=== PATIENT | male | born 1970 | race Caucasian/White ===

== ENCOUNTER 2020-10-27 12:03 | Emergency (ER) | payer BC ==
[2020-10-27] MEDS ORDERED: Aspirin 81 MG Tab.Chew PO ONE (12:22)
[2020-10-27] MEDS ORDERED: Sodium Chloride 0.9% 10 ML Syringe FLUSH PRN (12:24)
--- NOTE | 2020-10-27 13:10 | CR ---
Chest: Portable view of the chest was obtained. Comparison: No prior chest imaging is available. Heart size and mediastinum are normal. Lungs are clear with no acute parenchymal change. No acute osseous abnormality is appreciated. Impression: 1. Nothing acute is seen on portable chest x-ray. Diagnostic code #1
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
[2020-10-27] MEDS ORDERED: Metoprolol Tartrate 50 MG Tab PO ONE (14:20)
[2020-10-27] MEDS ORDERED: Insulin Glarg,Human.Rec.Analog 100 Unit/ML SUBCUT SCH (14:30)
[2020-10-27] MEDS ORDERED: LORazepam 2 MG/ML SDV IM ONE (15:08)
[2020-10-27] MEDS ORDERED: LORazepam 2 MG/ML SDV ONE (15:09)
[2020-10-27] MEDS ORDERED: Haloperidol Lactate 5 MG/ML SDV ONE (15:09)
[2020-10-27] MEDS ORDERED: OLANZapine 10 MG Vial IM ONE (15:39)
[2020-10-27] MEDS ORDERED: Ondansetron 4 MG/2 ML SDV ONE (15:39)
[2020-10-27] MEDS ORDERED: Ondansetron 4 MG/2 ML SDV IM ONE (15:39)
[2020-10-27] MEDS ORDERED: OLANZapine 10 MG Vial ONE (15:39)
== END 2020-10-27 17:40 ==
LOC: JD.ED 12:03
DX: F20.0 Paranoid schizophrenia (principal); R00.0 Tachycardia, unspecified; E11.9 Type 2 diabetes mellitus without complications; I25.2 Old myocardial infarction; F17.210 Nicotine dependence, cigarettes, uncomplicated; Z20.822 Contact with and (suspected) exposure to COVID-19; Z79.4 Long term (current) use of insulin; Z79.899 Other long term (current) drug therapy
CPT/HCPCS: 36415; 51701; 71045; 80053; 80306; 83735; 84443; 84484; 85025; 85379; 86140; 87635; 93005; 96372; 99285; A9270; J1815; J2405; J3490; 93010; U0002